=== PATIENT | female | born 1955 | race Hispanic/Latino ===

== ENCOUNTER 2018-07-03 06:31 | Day surgery (SDC) | payer BC ==
--- OUTSIDE RECORDS SUMMARY | 2018-07-03 06:33 | XMS REPORT | Clinical Summary ---
:1955 Author Organization [facility] Address [address] [place] [address] Care Team Providers Name Role Phone Irena Bocanegra MD Primary Care Provider Allergies No Known Allergies Current Medications Prescription Sig. Disp. Refills Start Date End Date Status lisinopril HEAVENLY REJI 1 10/21/2017 Active (PRINIVIL,ZESTRIL) TABLETA POR D?A 10 mg tablet ORAL REJI VEZ AL DAVID metFORMIN XR HEAVENLY REJI 10/21/2017 Active (GLUCOPHAGE-XR) 500 TABLETA DOS mg 24 hr tablet VECES AL DAVID rosuvastatin HEAVENLY REJI 10/21/2017 Active (CRESTOR) 10 MG TABLETA POR D?A tablet ORAL REJI VEZ AL DAVID aspirin (ECOTRIN) Take 81 mg by Active 81 MG enteric mouth daily. coated tablet CALCIUM Take 1 tablet Active CARBONATE/VITAMIN by mouth daily. D3 (CALTRATE 600 + D ORAL) multivitamin with Take 1 tablet Active minerals tablet by mouth daily. VITAMIN B COMPLEX Take 1 tablet Active (B COMPLEX-VITAMIN by mouth daily. B12 ORAL) SUPARTZ FX 10 mg/mL 2 (two) times a 10/18/2017 Active syringe week. Knee injection ciprofloxacin Take 500 mg by 11/20/2017 Discontinued (CIPRO) 500 MG mouth 2 (two) 8 tablet times a day. metroNIDAZOLE Take 500 mg by 11/22/2017 Discontinued (FLAGYL) 500 MG mouth 3 (three) 8 tablet times a day. SUPREP BOWEL PREP Take 2 Bottles 354 mL 0 11/29/2017 KIT 17.5-3.13-1.6 (354 mL total) 8 gram recon soln by mouth once for 1 dose. Take as directed by physician traMADol (ULTRAM) Take 1 tablet 50 tablet 0 12/07/2017 50 mg tablet (50 mg total) 8 by mouth every 6 (six) hours as needed (pain) for up to 10 days. Active Problems Problem Noted Date Bowel perforation (HCC) 12/07/2017 Diverticulitis 12/05/2017 Encounters Date Type Specialty Care Team Description 02/21/2018 Office Visit General Surgery [facility] Diverticulitis of MD [place] large intestine without perforation or abscess without bleeding (Primary Dx) 02/21/2018 Orders Only General Surgery [facility] MD 02/01/2018 Office Visit General Surgery [facility] Anal stenosis (Primary Dx); MD [place] Diverticulitis of large intestine without perforation or abscess without bleeding 01/24/2018 Office Visit General Surgery [facility] Anal stenosis (Primary Dx); MD [place] Diverticulitis of large intestine without perforation or abscess without bleeding 01/24/2018 Hospital Encounter Radiology [facility] Ileostomy status MD Ryley 01/02/2018 Orders Only General Surgery Yareli Van Ileostomy status MD [place] (Primary Dx) 12/29/2017 Office Visit General Surgery Alagugurusamy, Diverticulitis of [place] large intestine Todd, MAINTENANCE TECHNICIAN 2ND SHIFT-C without perforation [facility] or abscess without MD [place] bleeding (Primary Dx) 12/15/2017 Office Visit General Surgery Alagugurusamy, Diverticulitis of [place] large intestine with Todd, MAINTENANCE TECHNICIAN 2ND SHIFT-C abscess without bleeding (Primary Dx) 12/11/2017 Office Visit General Surgery Alagugurusamy, Diverticulitis of [place] large intestine with Todd, MAINTENANCE TECHNICIAN 2ND SHIFT-C abscess without bleeding (Primary Dx) 12/05/2017 - Hospital Encounter General Surgery [facility] Diverticulitis of 12/07/2017 MD [place]yle[place] large intestine with abscess without bleeding 12/05/2017 Procedure Pass General Surgery 12/05/2017 Surgery General Surgery [facility] LAPARSCOPIC LOW MD [place] ANTERIOR COLON RESECTION WITH DRAINAGE OF ABSCESS AND DIVERTING LOOP ILEOSTOMY 12/04/2017 Pre-Admit Testing Pre-Admission [facility] Preop testing Appointment Testing MD [place]y (Primary Dx) 12/04/2017 Anesthesia Event General Surgery [place] Luis APRN 11/29/2017 Orders Only General Surgery [facility] MD 11/29/2017 Documentation General Surgery Alagugurusamy, Aida Todd, MAINTENANCE TECHNICIAN 2ND SHIFT-C 11/28/2017 Hospital Encounter Radiology [facility] MD 11/28/2017 Ancillary Orders Radiology [facility] MD 11/24/2017 Lab Lab [facility] MD large intestine with abscess without bleeding 11/24/2017 Orders Only General Surgery [facility] MD 11/23/2017 Office Visit General Surgery [facility] DiverticuliTanesha MD large intestine with abscess without bleeding (Primary Dx) 11/23/2017 Orders Only General Surgery [facility] MD 11/23/2017 Orders Only General Surgery [facility] DiverticConstantine MD large intestine with abscess without bleeding (Primary Dx) 11/23/2017 Orders Only General Surgery [facility] MD large intestine with abscess without bleeding (Primary Dx) 11/23/2017 Orders Only General Surgery [facility] DiverticuliTanesha MD large intestine with abscess without bleeding (Primary Dx) after 07/02/2017 Family History Medical History Relation Name Comments Heart disease Father Hypertension Father Stroke Father Anesthesia problems Maternal Grandmother Relation Name Status Comments Father Maternal Grandmother Social History Tobacco Use Types Packs/Day Years Used Date Never Smoker Smokeless Tobacco: Never Used Alcohol Use Drinks/Week oz/Week Comments No Sex Assigned at Date Recorded Not on file Last Filed Vital Signs Vital Sign Reading Time Taken Blood Pressure 128/90 02/21/2018 2:59 PM CDT Pulse 87 02/21/2018 2:59 PM CDT Temperature 35.9 C (96.6 F) 12/07/2017 3:33 PM CDT Respiratory Rate 18 12/07/2017 3:33 PM CDT Oxygen Saturation 95% 12/07/2017 3:33 PM CDT Inhaled Oxygen Concentration - - Weight 66.8 kg (147 lb 4.8 oz) 12/05/2017 11:02 AM CDT Height 149.9 cm (4' 11") 12/05/2017 11:02 AM CDT Body Mass Index 29.75 12/05/2017 11:02 AM CDT Plan of Treatment Health Maintenance Due Date Last Done Comments CERVICAL CANCER SCREENING 1977 BREAST CANCER SCREENING 2006 COLON CANCER SCREENING 2006 SHINGRIX VACCINE (#1) 2006 ZOSTER VACCINE 2016 INFLUENZA VACCINE 04/04/2018 Procedures Procedure Name Priority Date/Time Associated Comments Diagnosis SURGICAL PATHOLOGY Routine 02/06/2018 12:00 REQUEST AM CDT FL COLON Routine 01/24/2018 11:52 Ileostomy status Results for this GASTROGRAFIN WATER AM CDT procedure are in SOLUBLE ENEMA the results section. POC GLUCOSE Routine 12/07/2017 4:13 Results for this PM CDT procedure are in the results section. POC GLUCOSE Routine 12/07/2017 11:52 Results for this AM CDT procedure are in the results section. POC GLUCOSE Routine 12/07/2017 7:47 Results for this AM CDT procedure are in the results section. ZZESTIMATED GFR Routine 12/07/2017 4:00 Results for this AM CDT procedure are in the results section. PHOSPHORUS LEVEL Routine 12/07/2017 4:00 Results for this AM CDT procedure are in the results section. MAGNESIUM LEVEL Routine 12/07/2017 4:00 Results for this AM CDT procedure are in the results section. BASIC METABOLIC PANEL Routine 12/07/2017 4:00 Results for this AM CDT procedure are in the results section. HC COMPLETE BLD COUNT Routine 12/07/2017 4:00 Results for this W/AUTO DIFF AM CDT procedure are in the results section. POC GLUCOSE Routine 12/06/2017 9:29 Results for this PM CDT procedure are in the results section. POC GLUCOSE Routine 12/06/2017 3:25 Results for this PM CDT procedure are in the results section. POC GLUCOSE Routine 12/06/2017 11:21 Results for this AM CDT procedure are in the results section. POC GLUCOSE Routine 12/06/2017 8:23 Results for this AM CDT procedure are in the results section. ZZESTIMATED GFR Routine 12/06/2017 4:00 Results for this AM CDT procedure are in the results section. PHOSPHORUS LEVEL Routine 12/06/2017 4:00 Results for this AM CDT procedure are in the results section. MAGNESIUM LEVEL Routine 12/06/2017 4:00 Results for this AM CDT procedure are in the results section. BASIC METABOLIC PANEL Routine 12/06/2017 4:00 Results for this AM CDT procedure are in the results section. HC COMPLETE BLD COUNT Routine 12/06/2017 3:20 Results for this W/AUTO DIFF AM CDT procedure are in the results section. POC GLUCOSE Routine 12/05/2017 8:42 Results for this PM CDT procedure are in the results section. AFB STAIN Routine 12/05/2017 7:00 Results for this PM CDT procedure are in the results section. GRAM STAIN Routine 12/05/2017 7:00 Results for this PM CDT procedure are in the results section. FUNGUS SMEAR Routine 12/05/2017 7:00 Results for this PM CDT procedure are in the results section. FUNGUS CULTURE Routine 12/05/2017 7:00 Results for this PM CDT procedure are in the results section. AFB CULTURE Routine 12/05/2017 7:00 Results for this PM CDT procedure are in the results section. AEROBIC CULTURE Routine 12/05/2017 7:00 Results for this PM CDT procedure are in the results section. ANAEROBIC CULTURE Routine 12/05/2017 7:00 Results for this PM CDT procedure are in the results section. GRAM STAIN Routine 12/05/2017 6:32 Results for this PM CDT procedure are in the results section. AFB STAIN Routine 12/05/2017 6:32 Results for this PM CDT procedure are in the results section. AFB CULTURE Routine 12/05/2017 6:32 Results for this PM CDT procedure are in the results section. FUNGUS CULTURE Routine 12/05/2017 6:32 Results for this PM CDT procedure are in the results section. FUNGUS SMEAR Routine 12/05/2017 6:32 Results for this PM CDT procedure are in the results section. AEROBIC CULTURE Routine 12/05/2017 6:32 Results for this PM CDT procedure are in the results section. ANAEROBIC CULTURE Routine 12/05/2017 6:32 Results for this PM CDT procedure are in the results section. AL AN ELECTIVE Routine 12/05/2017 5:47 ENDOTRACHEAL AIRWAY PM CDT Procedure Note - Denis Cabezas - 12/05/2017 5:47 PM CDT Airway Date/Time: 12/05/2017 5:16 PM Performed by: DENIS CABEZAS Authorized by: DEREK NEWELL Location: OR Urgency: Elective Difficult Airway: No Resident/FILM RENTAL CLERK/AA: DENIS CABEZAS Performed by: resident/FILM RENTAL CLERK/AA Preoxygenated with 100% O2: Yes Mask Ventilation: Easy mask (oral airway used ) Final Airway Type: Endotracheal airway Final Endotracheal Airway: ETT Cuffed: Yes Technique Used: Direct laryngoscopy Insertion Site: Oral Blade Type: Naqvi Laryngoscope Blade/Videolaryngoscope Blade Size: 2 ETT Size (mm): 7.0 Cuff at minimum occlusion pressure: Yes Measured from: Teeth ETT to Teeth (cm): 19 Placement Verified by: CO2 detection, direct visualization and equal breath sounds Laryngoscopic view: Grade I - full view of glottis Rapid Sequence Induction (RSI): No Modified RSI: No Number of Attempts at Approach: 1 Atraumatic intubation, dentition unchanged POC GLUCOSE Routine 12/05/2017 4:15 Results for this PM CDT procedure are in the results section. RESECTION, COLON, 12/05/2017 4:00 Diverticulitis of LOW ANTERIOR, PM CDT large intestine with LAPAROSCOPIC abscess without bleeding Special Needs XI CONSULT TO OSTOMY CARE Routine 12/05/2017 3:43 PM NURSE CDT POC GLUCOSE Routine 12/05/2017 1:34 PM Results for this CDT procedure are in the results section. POC GLUCOSE Routine 12/05/2017 11:07 AM Results for this CDT procedure are in the results section. SURGICAL PATHOLOGY Routine 12/05/2017 8:37 AM Results for this REQUEST CDT procedure are in the results section. ECG PRE/POST OP Routine 12/04/2017 10:35 AM Preop testing Results for this CDT procedure are in the results section. HEMOGLOBIN A1C Routine 12/04/2017 10:24 AM Preop testing Results for this CDT procedure are in the results section. TYPE AND SCREEN Routine 12/04/2017 10:24 AM Preop testing Results for this CDT procedure are in the results section. CBC WITH PLATELET AND Routine 11/24/2017 11:37 AM Results for this DIFFERENTIAL CDT procedure are in the results section. COMPREHENSIVE METABOLIC Routine 11/23/2017 4:01 PM Results for this PANEL CDT procedure are in the results section. CT ABD/PELVIC EXTERNAL Routine 11/22/2017 2:00 PM Results for this STUDY CDT procedure are in the results section. after 07/02/2017 Results Surgical pathology request (02/06/2018)Only the most recent of2 resultswithin the time period is included. Specimen Tissue Narrative Performed At [place] Colon Gastrografin Water Soluble Enema (01/24/2018 11:52 AM) Narrative Performed At EXAMINATION:[place] COLON GASTROGRAFIN WATER SOLUBLE ENEMA [facility] CLINICAL HISTORY:Z93.2 Ileostomy status, ileostomy status COMPARISON:None. TECHNIQUE: Water-soluble contrast administered via a rectal tube by gravity under fluoroscopic guidance. The colon was opacified in a retrograde fashion. Spot radiographs and overhead films were obtained. FLUOROSCOPIC TIME:1.1 minutes. 7 fluoroscopic spot images FINDINGS: Winder Hand image shows nonobstructive bowel gas pattern. Staple line projecting to the left of midline in the upper pelvis. Contrast readily traverses the staple line, without evidence of extravasation or narrowing or holdup. Scattered diverticula mostly in the descending colon. On the postevacuation view, there is decompression of contrast in the colon distally, with residual contrast mostly proximally. IMPRESSION: Satisfactory postoperative appearance. [facility]-[id number] Procedure Note Hm Interface, Radiology Results Incoming - 01/24/2018 1:27 PM CDT EXAMINATION: [place] COLON GASTROGRAFIN WATER SOLUBLE ENEMA CLINICAL HISTORY: Z93.2 Ileostomy status, ileostomy status COMPARISON: None. TECHNIQUE: Water-soluble contrast administered via a rectal tube by gravity under fluoroscopic guidance. The colon was opacified in a retrograde fashion. Spot radiographs and overhead films were obtained. FLUOROSCOPIC TIME: 1.1 minutes. 7 fluoroscopic spot images FINDINGS: Winder Hand image shows nonobstructive bowel gas pattern. Staple line projecting to the left of midline in the upper pelvis. Contrast readily traverses the staple line, without evidence of extravasation or narrowing or holdup. Scattered diverticula mostly in the descending colon. On the postevacuation view, there is decompression of contrast in the colon distally, with residual contrast mostly proximally. IMPRESSION: Satisfactory postoperative appearance. [facility]-[id number] Performing Organization Address City/State/Zipcode Phone Number [facility] [address] [place] [address] POC glucose (12/07/2017 4:13 PM)Only the most recent of11 resultswithin the time period is included. POC glucose 181 (H) 65 - 99 mg/dL [facility] DEPARTMENT OF PATHOLOGY AND Comment: GENOMIC MEDICINE [facility] Notified RN Meter ID: [id number] Computer Science Teacher: Jesus Charles Performing Organization Address City/State/Zipcode Phone Number [facility] DEPARTMENT OF PATHOLOGY AND [address] [place] [id number] [employer] [facility] Estimated GFR (12/07/2017 4:00 AM)Only the most recent of2 resultswithin the time period is included. GFR Non Af Amer >90 mL/min/1.73 m2 [facility] DEPARTMENT OF PATHOLOGY AND GENOMIC MEDICINE GFR Af Amer >90 mL/min/1.73 m2 [facility] DEPARTMENT OF Comment: PATHOLOGY AND GENOMIC Chronic kidney disease: <60 mL/min/1.73m2 MEDICINE Kidney failure: <15 mL/min/1.73m2 The estimated GFR is calculated from the IDMS-traceable Modification of Diet in Renal Disease Equation. The accuracy of the calculation is poor when the creatinine is normal. Calculated values >90 mL/min/1.73m2 are not reported. This equation has not been validated in children (<18 years), women, the elderly (>70 years), or ethnic groups other than Caucasians and Americans. Specimen Plasma specimen Performing Organization Address City/[facility]/Zipcode Phone Number [facility] DEPARTMENT OF PATHOLOGY AND [address] [place], [place] [id number] [employer] [facility] CBC with platelet and differential (12/07/2017 4:00 AM)Only the most recent of3 resultswithin the time period is included. WBC 8.35 4.50 - 11.00 k/uL [facility] DEPARTMENT OF PATHOLOGY AND GENOMIC MEDICINE RBC 3.72 (L) 4.20 - 5.50 m/uL [facility] DEPARTMENT OF PATHOLOGY AND GENOMIC MEDICINE HGB 10.3 (L) 12.0 - 16.0 g/dL [facility] DEPARTMENT OF PATHOLOGY AND GENOMIC MEDICINE HCT 33.6 (L) 37.0 - 47.0 % [facility] DEPARTMENT OF PATHOLOGY AND GENOMIC MEDICINE MCV 90.3 82.0 - 100.0 fL [facility] DEPARTMENT OF PATHOLOGY AND GENOMIC MEDICINE MCH 27.7 27.0 - 34.0 pg [facility] DEPARTMENT OF PATHOLOGY AND GENOMIC MEDICINE MCHC 30.7 (L) 31.0 - 37.0 g/dL [facility] DEPARTMENT OF PATHOLOGY AND GENOMIC MEDICINE RDW - SD 48.0 37.0 - 55.0 fL [facility] DEPARTMENT OF PATHOLOGY AND GENOMIC MEDICINE MPV 10.0 8.8 - 13.2 fL [facility] DEPARTMENT OF PATHOLOGY AND GENOMIC MEDICINE Platelet count 204 150 - 400 k/uL [facility] DEPARTMENT OF PATHOLOGY AND GENOMIC MEDICINE Nucleated RBC 0.00 /100 WBC [facility] DEPARTMENT OF PATHOLOGY AND GENOMIC MEDICINE Neutrophils 72.4 (H) 39.0 - 69.0 % [facility] DEPARTMENT OF PATHOLOGY AND GENOMIC MEDICINE Lymphocytes 16.2 (L) 25.0 - 45.0 % [facility] DEPARTMENT OF PATHOLOGY AND GENOMIC MEDICINE Monocytes 9.6 0.0 - 10.0 % [facility] DEPARTMENT OF PATHOLOGY AND GENOMIC MEDICINE Eosinophils 1.0 0.0 - 5.0 % [facility] DEPARTMENT OF PATHOLOGY AND GENOMIC MEDICINE Basophils 0.4 0.0 - 1.0 % [facility] DEPARTMENT OF PATHOLOGY AND GENOMIC MEDICINE Immature granulocytes 0.4Comment: 0.0 - 1.0 % [facility] DEPARTMENT OF "Immature PATHOLOGY AND GENOMIC granulocytes" MEDICINE (promyelocytes, myelocytes, metamyelocytes) Specimen Blood Performing Organization Address City/[facility] Phone Number [facility] DEPARTMENT OF PATHOLOGY AND [address] [place] [address] Phosphorus level (12/07/2017 4:00 AM)Only the most recent of2 resultswithin the time period is included. Phosphorus 2.7 2.4 - 4.5 mg/dL [facility] DEPARTMENT OF PATHOLOGY AND GENOMIC MEDICINE Specimen Plasma specimen Performing Organization Address City/[facility] Phone Number [facility] DEPARTMENT OF PATHOLOGY AND [address] [place] [address] Magnesium level (12/07/2017 4:00 AM)Only the most recent of2 resultswithin the time period is included. Magnesium 1.9 1.6 - 2.4 mg/dL [facility] DEPARTMENT OF PATHOLOGY AND GENOMIC MEDICINE Specimen Plasma specimen Performing Organization Address City/[facility] Cent[facility] Phone Number [facility] DEPARTMENT OF PATHOLOGY AND [address] [place] [address] [employer] MEDICINE Basic metabolic panel (12/07/2017 4:00 AM)Only the most recent of2 resultswithin the time period is included. Sodium 144 135 - 148 mEq/L [facility] DEPARTMENT OF PATHOLOGY AND GENOMIC MEDICINE Potassium 4.3 3.5 - 5.0 mEq/L [facility] DEPARTMENT OF PATHOLOGY AND GENOMIC MEDICINE Chloride 109 98 - 112 mEq/L [facility] DEPARTMENT OF PATHOLOGY AND GENOMIC MEDICINE CO2 25 24 - 31 mEq/L [facility] DEPARTMENT OF PATHOLOGY AND GENOMIC MEDICINE Anion gap 10 7 - 15 mEq/L [facility] DEPARTMENT OF PATHOLOGY Comment: [facility] Starting from December , anion gap calculation no longer incorporates potassium. Please note the change. BUN 6 (L) 8 - 23 mg/dL [facility] DEPARTMENT OF PATHOLOGY AND GENOMIC MEDICINE Creatinine 0.6 0.5 - 0.9 mg/dL [facility] DEPARTMENT OF PATHOLOGY AND GENOMIC MEDICINE Glucose 118 (H) 65 - 99 mg/dL [facility] DEPARTMENT OF PATHOLOGY AND GENOMIC MEDICINE Calcium 8.8 8.8 - 10.2 mg/dL [facility] DEPARTMENT OF PATHOLOGY AND [employer] MEDICINE Specimen Plasma specimen Performing Organization Address City/[facility] Phone Number [facility] DEPARTMENT OF PATHOLOGY AND [address] [place] [address] Fungus smear (12/05/2017 7:00 PM)Only the most recent of2 resultswithin the time period is included. Fungus smear No fungi observed. [facility] DEPARTMENT OF PATHOLOGY Comment: [facility] Specimen Information Specimen Source: Peritoneal fluid Specimen Site: Not otherwise specified Specimen Peritoneal fluid - Not otherwise specified Performing Organization Address City/[facility] Phone Number [facility] DEPARTMENT OF PATHOLOGY AND [address] [place] [address] AFB culture (12/05/2017 7:00 PM)Only the most recent of2 resultswithin the time period is included. AFB culture isolate No growth after 6 weeks of incubation. [facility] DEPARTMENT OF PATHOLOGY Comment: AND [facility] Specimen Information Specimen Source: Peritoneal fluid Specimen Site: Not otherwise specified Specimen Peritoneal fluid - Not otherwise specified Performing Organization Address City/[facility] Phone Number [facility] DEPARTMENT OF PATHOLOGY AND [address] [place] [address] Aerobic culture (12/05/2017 7:00 PM)Only the most recent of2 resultswithin the time period is included. Aerobic culture isolate Escherichia coli [facility] DEPARTMENT OF Few PATHOLOGY AND GENOMIC , strain 1 MEDICINE This organism is NOT a carbapenemase producing organism. (A) Comment: Specimen Information Specimen Source: Peritoneal fluid Specimen Site: Not otherwise specified Aerobic culture isolate Escherichia coli [facility] DEPARTMENT OF Few PATHOLOGY [facility] , strain 2 MEDICINE This organism is NOT a carbapenemase producing organism. (A) Aerobic culture isolate Khushbu albicans [facility] DEPARTMENT OF Rare PATHOLOGY AND GENOMIC (A) MEDICINE Specimen Peritoneal fluid - Not otherwise specified Organism Antibiotic Method Susceptibility Escherichia coli Amikacin BRIAN <=4 mcg/mL: Susceptible Escherichia coli Amoxicillin/Clavulanate BRIAN 16/8 mcg/mL: Resistant Escherichia coli Ampicillin/Sulbactam BIRAN 16/8 mcg/mL: Resistant Escherichia coli Ampicillin BRIAN 16 mcg/mL: Resistant Escherichia coli Aztreonam BRIAN <=1 mcg/mL: Susceptible Escherichia coli Cefazolin BRIAN 4 mcg/mL: Resistant Escherichia coli Cefoxitin BRIAN 16 mcg/mL: Resistant Escherichia coli Ceftazidime BRIAN 1 mcg/mL: Susceptible Escherichia coli Ceftriaxone BRIAN <=0.5 mcg/mL: Susceptible Escherichia coli Cefuroxime Sodium BRIAN >16 mcg/mL: Resistant Escherichia coli Ciprofloxacin BRIAN >2 mcg/mL: Resistant Escherichia coli Ertapenem BRIAN <=0.125 mcg/mL: Susceptible Escherichia coli Gentamicin BRIAN 2 mcg/mL: Susceptible Escherichia coli Imipenem BRIAN <=0.25 mcg/mL: Susceptible Escherichia coli Levofloxacin BRIAN >4 mcg/mL: Resistant Escherichia coli Meropenem BRIAN <=0.125 mcg/mL: Susceptible Escherichia coli Piperacillin/Tazobactam BRIAN 16/4 mcg/mL: Susceptible Escherichia coli Tetracycline BRIAN 2 mcg/mL: Susceptible Escherichia coli Tigecycline BRIAN 1 mcg/mL: Susceptible Escherichia coli Tobramycin BRIAN 2 mcg/mL: Susceptible Escherichia coli Trimethoprim/Sulfamethoxazole BRIAN <=0.5/9.5 mcg/mL: Susceptible Escherichia coli Cefepime BRIAN <=0.5 mcg/mL: Susceptible Escherichia coli Amikacin BRIAN <=4 mcg/mL: Susceptible Escherichia coli Amoxicillin/Clavulanate BRIAN 8/4 mcg/mL: Susceptible Escherichia coli Ampicillin/Sulbactam BRIAN 16/8 mcg/mL: Resistant Escherichia coli Ampicillin BRIAN 8 mcg/mL: Susceptible Escherichia coli Aztreonam BRIAN <=1 mcg/mL: Susceptible Escherichia coli Cefazolin BRIAN 8 mcg/mL: Resistant Escherichia coli Cefoxitin BRIAN >16 mcg/mL: Resistant Escherichia coli Ceftazidime BRIAN <=0.5 mcg/mL: Susceptible Escherichia coli Ceftriaxone BRIAN <=0.5 mcg/mL: Susceptible Escherichia coli Cefuroxime Sodium BRIAN >16 mcg/mL: Resistant Escherichia coli Ciprofloxacin BRIAN >2 mcg/mL: Resistant Escherichia coli Ertapenem BRIAN <=0.125 mcg/mL: Susceptible Escherichia coli Gentamicin BRIAN 2 mcg/mL: Susceptible Escherichia coli Imipenem BRIAN <=0.25 mcg/mL: Susceptible Escherichia coli Levofloxacin BRIAN >4 mcg/mL: Resistant Escherichia coli Meropenem BRIAN <=0.125 mcg/mL: Susceptible Escherichia coli Piperacillin/Tazobactam BRIAN 8/4 mcg/mL: Susceptible Escherichia coli Tetracycline BRIAN 2 mcg/mL: Susceptible Escherichia coli Tigecycline BRIAN <=0.5 mcg/mL: Susceptible Escherichia coli Tobramycin BRIAN 1 mcg/mL: Susceptible Escherichia coli Trimethoprim/Sulfamethoxazole BRIAN <=0.5/9.5 mcg/mL: Susceptible Escherichia coli Cefepime BRIAN <=0.5 mcg/mL: Susceptible Performing Organization Address [facility] Phone Number [facility] DEPARTMENT OF PATHOLOGY AND [address] [place] [address] Gram stain (12/05/2017 7:00 PM)Only the most recent of2 resultswithin the time period is included. Gram stain isolate Many WBC's [facility] DEPARTMENT OF PATHOLOGY No organisms seen AND GENOMIC MEDICINE Comment: Specimen Information Specimen Source: Peritoneal fluid Specimen Site: Not otherwise specified Specimen Peritoneal fluid - Not otherwise specified Performing Organization Address [facility] Phone Number [facility] DEPARTMENT OF PATHOLOGY AND [address] [place] [address] [employer] [employer] [facility] AFB stain (12/05/2017 7:00 PM)Only the most recent of2 resultswithin the time period is included. AFB stain No acid fast bacilli (AFB) seen. [facility] DEPARTMENT OF PATHOLOGY AND Comment: GENOMIC MEDICINE Specimen Information Specimen Source: Peritoneal fluid Specimen Site: Not otherwise specified Specimen Peritoneal fluid - Not otherwise specified Performing Organization Address [facility] Phone Number [facility] DEPARTMENT OF PATHOLOGY AND [address] [place] [address] Fungus culture (12/05/2017 7:00 PM)Only the most recent of2 resultswithin the time period is included. Fungus culture isolate Khushbu albicans [facility] DEPARTMENT OF Few PATHOLOGY AND GENOMIC (A) MEDICINE Comment: Specimen Information Specimen Source: Peritoneal fluid Specimen Site: Not otherwise specified Specimen Peritoneal fluid - Not otherwise specified Organism Antibiotic Method Susceptibility Khushbu albicans Micafungin BP 0.032 mcg/mL: Susceptible Khushbu albicans Amphotericin B BP 1 mcg/mL Khushbu albicans Posiconazole BP 0.03 mcg/mL Khushbu albicans Voriconazole BP 0.016 mcg/mL: Susceptible Khushbu albicans Itraconazole BP 0.06 mcg/mL Khushbu albicans Fluconazole BP 0.25 S mcg/mL Performing Organization Address City/[facility]/Zipcode Phone Number [facility] DEPARTMENT OF PATHOLOGY AND [address] [place] [address] [facility] Anaerobic culture (12/05/2017 7:00 PM)Only the most recent of2 resultswithin the time period is included. Anaerobic culture No anaerobic organisms isolated. [facility] DEPARTMENT OF isolate Comment: PATHOLOGY AND GENOMIC Specimen Information MEDICINE Specimen Source: Peritoneal fluid Specimen Site: Not otherwise specified Specimen Peritoneal fluid - Not otherwise specified Performing Organization Address [facility] Phone Number [facility] DEPARTMENT OF PATHOLOGY AND [address] [place] [address] [facility] ECG Pre/Post Op (12/04/2017 10:35 AM) Ventricular rate 84 [facility] MUSE Atrial rate 84 [facility] MUSE AL interval 162 HM MUSE QRSD interval 96 H MUSE QT interval 404 [facility] M[facility] QTC interval 477 [facility] MUSE P axis 1 43 [facility] MUSE QRS axis 1 114 [facility] MUSE T wave axis 16 [facility] M[facility] EKG impression Normal sinus rhythm-Right axis [facility] MUSE deviation-Incomplete right bundle branch block-Abnormal ECG-No previous ECGs available- Performing Organization Address [facility] Phone Number [facility] MUSE [address] [place] [phone] Type and screen (12/04/2017 10:24 AM) ABO grouping O [facility] DEPARTMENT OF PATHOLOGY AND GENOMIC MEDICINE Rh type POS [facility] DEPARTMENT OF PATHOLOGY AND GENOMIC MEDICINE Antibody screen (gel) NEG [facility] DEPARTMENT OF PATHOLOGY AND GENOMIC MEDICINE Specimen Blood Performing Organization Address City/[facility]/Zipcode Phone Number [facility] DEPARTMENT OF PATHOLOGY AND [address] [place] [address] [employer] [facility] Hemoglobin A1c (12/04/2017 10:24 AM) Hemoglobin A1C 6.3 (H) 4.0 - 5.6 % [facility] DEPARTMENT OF PATHOLOGY Comment: AND [employer] MEDICINE HbA1c cutoffs for diagnosing diabetes: 4.0% - 5.6%=normal 5.7% - 6.4%=increased risk for diabetes (prediabetes) >=6.5%=diabetes Goals for glycemic control (ADA 2016) < 7.0%Target for non adults with diabetes. More or less stringent targets may be appropriate for individual patients. <7.5% Target for Children and adolescents with type 1 diabetes. Specimen Blood Performing Organization Address City/State/Zipcode Phone Number [facility] DEPARTMENT OF PATHOLOGY AND [address] [place] [address] [facility] Comprehensive metabolic panel (11/23/2017 4:01 PM) Glucose 115 (H) 65 - 99 mg/dL [facility] Comment: [facility] Fasting reference interval For someone without known diabetes, a glucose value between 100 and 125 mg/dL is consistent with prediabetes and should be confirmed with a follow-up test. BUN, whole blood 15 7 - 25 mg/dL [facility] Creatinine 0.59 0.50 - 0.99 [facility] Comment: mg/dL [facility] For patients >49 years of age, the reference limit for Creatinine is approximately 13% higher for people identified as -Zimbabwean. EGFR Non-Afr. Zimbabwean 100 > OR=60 [facility] mL/min/1.73m2 [facility] EGFR 115 > OR=60 [facility] mL/min/1.73m2 [facility] BUN/creatinine ratio NOT APPLICABLE 6 - 22 (calc) [facility] Sodium 142 135 - 146 mmol/L [facility] Potassium 3.6 3.5 - 5.3 mmol/L [facility] Chloride 104 98 - 110 mmol/L [facility] CO2 20 20 - 31 mmol/L [facility] Calcium 9.3 8.6 - 10.4 mg/dL [facility] Protein 7.2 6.1 - 8.1 g/dL [facility] Albumin, S 3.8 3.6 - 5.1 g/dL [facility] Globulin, total 3.4 1.9 - 3.7 g/dL [facility] (calc) [facility] Albumin/globulin ratio 1.1 1.0 - 2.5 (calc) [facility] Total bilirubin 0.4 0.2 - 1.2 mg/dL [facility] Alkaline phosphatase 314 (H) 33 - 130 U/L [facility] AST 19 10 - 35 U/L [facility] ALT 37 (H) 6 - 29 U/L [facility] Narrative Performed At FASTING: UNKNOWN QUEST Other Results Text Performing Organization Information: Site ID: [id number] Name: [email or web address] Address: [address] [place] [address] Director: Shaniqua Retana MD Performing Organization Address City/State/Zipcode Phone Number [facility] [address] [place] [address] CT Abd/Pelvic External Study (11/22/2017 2:00 PM) Narrative Performed At This exam was not acquired at a [employer] facility and has not been [facility] interpreted by a [employer] Provider.The exam was imported into our imaging system for comparisons purposes. Performing Organization Address City/[facility]/Zipcode Phone Number [facility] [address] [place] [address] after 07/02/2017 Insurance Payer Benefit Plan / Group Subscriber ID Type Phone Address BCBS BCBS CHOICE PPO/FEDERAL EMPL PPO xxxxxxxxxxxx PPO [phone] [address]
--- OUTSIDE RECORDS SUMMARY | 2018-07-03 06:34 | XMS REPORT | Clinical Summary ---
:1955 Author Organization [facility] Address [address] [place] [address] Care Team Providers Name Role Phone Daljit Irena Valente Primary Care Provider Unavailable Allergies No Known Allergies Medications Medication Sig Dispensed Refills Start Date End Date Status metFORMIN (GLUCOPHAGE) Take 1,000 mg 0 Active 1000 MG tablet by mouth daily with dinner. lisinopril Take 10 mg by 0 Active (PRINIVIL,ZESTRIL) 10 mouth every MG tablet evening. rosuvastatin (CRESTOR) Take 10 mg by 0 Active 10 MG tablet mouth nightly. CALCIUM Take 1 tablet 0 Active CARBONATE/VITAMIN D3 by mouth 2 (CALTRATE 600 + D (two) times ORAL) daily. GLUCOSAMINE/CHONDR STEVENS Take 1 tablet 0 Active A SOD (OSTEO BI-FLEX by mouth 2 ORAL) (two) times daily. aspirin 81 MG EC Take 81 mg by 0 Active tablet mouth daily. b complex vitamins Take 1 tablet 0 Active tablet by mouth daily. L.ACIDOPHILUS/B.BIFIDU Take 1 tablet 0 Active M,LONGUM (HEALTHY by mouth daily. COLON ORAL) MULTIVIT-MIN/IRON/FOLI Take 1 tablet 0 Active C/LUTEIN (CENTRUM by mouth daily. SILVER WOMEN ORAL) traMADol (ULTRAM) 50 Take 1 tablet 50 tablet 0 02/07/2018 02/17/2018 mg tablet (50 mg total) by mouth every 6 (six) hours as needed for up to 10 days. Max Daily Amount: 200 mg Active Problems Problem Noted Date Diverticulitis of large intestine 02/05/2018 Diverticulitis large intestine 02/05/2018 Encounters Date Type Specialty Care Team Description 02/05/2018 Surgery Van Downs LAPAROSCOPY,COLOSTOMY MD Ryley [place] 02/05/2018 - Hospital Encounter General Internal Van Downs Diverticulitis of 02/07/2018 Medicine MD Ryley large intestine with abscess without bleeding (Primary Dx) 02/02/2018 Anesthesia Event Catalina Guillermo MD 01/25/2018 Hospital Encounter Pre-Admission Van Downs MD 01/25/2018 Orders Only General Internal Medicine after 07/02/2017 Social History Tobacco Use Types Packs/Day Years Used Date Never Smoker Smokeless Tobacco: Never Used Alcohol Use Drinks/Week oz/Week Comments No Sex Assigned at Date Recorded Not on file Job Start Date Occupation Industry Not on file Not on file Not on file Travel History Travel Start Travel End No recent travel history available. Last Filed Vital Signs Vital Sign Reading Time Taken Blood Pressure 116/65 02/07/2018 7:51 AM CDT Pulse 90 02/07/2018 7:51 AM CDT Temperature 37 C (98.6 F) 02/07/2018 7:51 AM CDT Respiratory Rate 18 02/07/2018 7:51 AM CDT Oxygen Saturation 92% 02/07/2018 7:51 AM CDT Inhaled Oxygen Concentration - - Weight 66.5 kg (146 lb 9.6 oz) 02/05/2018 12:07 PM CDT Height 149.9 cm (4' 11") 02/05/2018 12:07 PM CDT Body Mass Index 29.61 02/05/2018 12:07 PM CDT Plan of Treatment Not on file Procedures Procedure Name Priority Date/Time Associated Diagnosis Comments POCT-GLUCOSE METER Routine 02/07/2018 7:45 Results for this AM CDT procedure are in the results section. CBC (HEMOGRAM ONLY) Routine 02/07/2018 4:00 Results for this AM CDT procedure are in the results section. MAGNESIUM Routine 02/07/2018 4:00 Results for this AM CDT procedure are in the results section. PHOSPHORUS Routine 02/07/2018 4:00 Results for this AM CDT procedure are in the results section. BASIC METABOLIC PANEL Routine 02/07/2018 4:00 Results for this (7) AM CDT procedure are in the results section. POCT-GLUCOSE METER Routine 02/06/2018 9:17 Results for this PM CDT procedure are in the results section. POCT-GLUCOSE METER Routine 02/06/2018 5:01 Results for this PM CDT procedure are in the results section. POCT-GLUCOSE METER Routine 02/06/2018 12:54 Results for this PM CDT procedure are in the results section. POCT-GLUCOSE METER Routine 02/06/2018 8:57 Results for this AM CDT procedure are in the results section. CBC W/PLT COUNT & Routine 02/06/2018 3:16 Results for this AUTO DIFFERENTIAL AM CDT procedure are in the results section. COMPREHENSIVE Routine 02/06/2018 3:16 Results for this METABOLIC PANEL AM CDT procedure are in the results section. CBC W/PLT COUNT & Routine 02/06/2018 3:16 Results for this AUTO DIFFERENTIAL AM CDT procedure are in the results section. HEMOGLOBIN A1C Routine 02/06/2018 3:16 Results for this AM CDT procedure are in the results section. MAGNESIUM Routine 02/06/2018 3:16 Results for this AM CDT procedure are in the results section. PHOSPHORUS Routine 02/06/2018 3:16 Results for this AM CDT procedure are in the results section. POCT-GLUCOSE METER Routine 02/05/2018 9:59 Results for this PM CDT procedure are in the results section. POCT-GLUCOSE METER Routine 02/05/2018 7:52 Results for this PM CDT procedure are in the results section. TISSUE EXAM AP Routine 02/05/2018 6:35 Results for this PM CDT procedure are in the results section. LAPAROSCOPY,COLOSTOMY 02/05/2018 3:27 Diverticulitis of [place] PM CDT large intestine without perforation or abscess without bleeding POCT-GLUCOSE METER Routine 02/05/2018 1:03 Results for this PM CDT procedure are in the results section. ECG 12-LEAD Routine 01/25/2018 11:55 AM CDT Procedure Note - Interface, External Ris In 01/25/2018 4:52 PM CDT Ventricular Rate 83 BPM Atrial Rate 83 BPM P-R Interval 172 ms QRS Duration 90 ms Q-T Interval 418 ms QTC Calculation(Bazett) 491 ms P Empire 4 degrees R Empire 105 degrees T Empire -19 degrees Sinus rhythm with occasional Premature ventricular complexes Rightward axis RSR' or QR pattern in V1 suggests right ventricular conduction delay Inferior infarct , age undetermined Abnormal ECG No previous ECGs available ECG 12-LEAD Routine 01/25/2018 11:55 AM CDT Procedure Note - Interface, External Ris In - 01/25/2018 12:33 PM CDT Ventricular Rate 83 BPM Atrial Rate 83 BPM P-R Interval 172 ms QRS Duration 90 ms Q-T Interval 418 ms QTC Calculation(Bazett) 491 ms P Empire 4 degrees R Empire 105 degrees T Empire -19 degrees Sinus rhythm with occasional Premature ventricular complexes Rightward axis RSR' or QR pattern in V1 suggests right ventricular conduction delay Inferior infarct , age undetermined Abnormal ECG No previous ECGs available ECG 12-LEAD Routine 01/25/2018 11:55 AM CDT BASIC METABOLIC PANEL (7) Routine 01/25/2018 11:53 AM CDT HEMOGLOBIN Routine 01/25/2018 11:53 AM CDT after 07/02/2017 Results POC-Glucose meter (02/07/2018 7:45 AM CDT)Only the most recent of8 resultswithin the time period is included. POC-Glucose Meter 124 (H)Comment: TESTED AT 70 - 110 mg/dL [address] [address] Specimen Blood Performing Organization Address City/State/Zipcode Phone Number [address] [id number] [phone] CENTER CBC (Hemogram only) (02/07/2018 4:00 AM CDT) WBC 10.2 3.5 - 10.5 K/L [facility] RBC 4.22 3.93 - 5.22 M/L [facility] Hemoglobin 11.8 11.2 - 15.7 GM/DL [facility] Hematocrit 37.6 34.1 - 44.9 % [facility] MCV 89.1 79.4 - 94.8 fL [facility] MCH 28.0 25.6 - 32.2 pg [facility] MCHC 31.4 (L) 32.2 - 35.5 GM/DL [facility] RDW 15.2 (H) 11.7 - 14.4 % [facility] Platelets 178 150 - 450 K/CU MM [facility] MPV 9.7 9.4 - 12.3 fL [facility] nRBC 0 0 - 0 /100 WBC [facility] Specimen Blood Performing Organization Address City/State/Zipcode Phone Number [address] [address] [phone] [place] Phosphorus (02/07/2018 4:00 AM CDT)Only the most recent of2 resultswithin the time period is included. Phosphorus 2.8 2.3 - 4.7 mg/dL [facility] Specimen Blood Performing Organization Address City/[facility]/Zipcode Phone Number [address] [address] [phone] CENTER Magnesium (02/07/2018 4:00 AM CDT)Only the most recent of2 resultswithin the time period is included. Magnesium 2.1 1.6 - 2.6 mg/dL [facility] Specimen Blood Performing Organization Address City/[facility] Phone Number [address] [address] [place] Basic Metabolic Panel (02/07/2018 4:00 AM CDT)Only the most recent of2 resultswithin the time period is included. Sodium 140 136 - 145 meq/L [facility] Potassium 4.0 3.5 - 5.1 meq/L [facility] Chloride 109 (H) 98 - 107 meq/L [facility] CO2 23 22 - 29 meq/L [facility] BUN 16 7 - 21 mg/dL [facility] Creatinine 0.70 0.57 - 1.25 mg/dL [facility] Glucose 137 (H) 70 - 105 mg/dL [facility] Calcium 9.0 8.4 - 10.2 mg/dL [facility] EGFR 85Comment: ESTIMATED GFR IS mL/min/1.73 sq m [facility] NOT ACCURATE [facility] CLEARANCE IN PREDICTING GLOMERULAR FILTRATION RATE. ESTIMATED GFR IS NOT APPLICABLE FOR DIALYSIS PATIENTS. Specimen Blood Performing Organization Address City/State/Zipcode Phone Number [facility] [address] [place] [address] CENTER CBC with platelet count + automated diff (02/06/2018 3:16 AM CDT) WBC 13.7 (H) 3.5 - 10.5 K/L [facility] RBC 4.35 3.93 - 5.22 M/L [facility] Hemoglobin 12.4 11.2 - 15.7 GM/DL [facility] Hematocrit 39.0 34.1 - 44.9 % [facility] MCV 89.7 79.4 - 94.8 fL [facility] MCH 28.5 25.6 - 32.2 pg [facility] MCHC 31.8 (L) 32.2 - 35.5 GM/DL [facility] RDW 14.3 11.7 - 14.4 % [facility] Platelets 177 150 - 450 K/CU MM [facility] MPV 9.9 9.4 - 12.3 fL [facility] nRBC 0 0 - 0 /100 WBC [facility] % Neutros 92 % [facility] % Lymphs 5 % [facility] % Monos 2 % [facility] % Eos 0 % [facility] % Baso 0 % [facility] # Neutros 12.58 (H) 1.56 - 6.13 K/L [facility] # Lymphs 0.72 (L) 1.18 - 3.74 K/L [facility] # Monos 0.32 0.24 - 0.36 K/L [facility] # Eos 0.00 (L) 0.04 - 0.36 K/L [facility] # Baso 0.02 0.01 - 0.08 K/L [facility] Immature 1 0 - 1 % [facility] Specimen Blood Performing Organization Address City/State/Zipcode Phone Number [address] [address] [phone] [place] Hemoglobin A1c (02/06/2018 3:16 AM CDT) Hemoglobin A1C 5.6 4.3 - 6.1 % [facility] Specimen Blood Performing Organization Address City/State/Zipcode Phone Number [address] [address] [phone] [place] Comprehensive metabolic panel (02/06/2018 3:16 AM CDT) Protein, Total 6.7 6.0 - 8.3 gm/dL [facility] Albumin 4.0 3.5 - 5.0 g/dL [facility] Alkaline Phosphatase 91 40 - 150 U/L [facility] Total Bilirubin 0.5 0.2 - 1.2 mg/dL [facility] Sodium 136 136 - 145 meq/L [facility] Potassium 4.4 3.5 - 5.1 meq/L [facility] Chloride 106 98 - 107 meq/L [facility] CO2 19 (L) 22 - 29 meq/L [facility] BUN 18 7 - 21 mg/dL [facility] Creatinine 0.71 0.57 - 1.25 mg/dL [facility] Glucose 142 (H) 70 - 105 mg/dL [facility] Calcium 9.0 8.4 - 10.2 mg/dL [facility] AST 18 5 - 34 U/L [facility] ALT 23 6 - 55 U/L [facility] EGFR 84Comment: ESTIMATED GFR mL/min/1.73 sq m [facility] IS NOT ACCURATE [facility] CREATININE CLEARANCE IN PREDICTING GLOMERULAR FILTRATION RATE. ESTIMATED GFR IS NOT APPLICABLE FOR DIALYSIS PATIENTS. Specimen Blood Performing Organization Address City/State/Zipcode Phone Number [facility] [address] [place] [address] CENTER Tissue Exam (02/05/2018 6:35 PM CDT) Case Report Surgical Pathology Report Case: [id number] [facility] Authorizing Provider:Van Downs MDCollected: 02/05/2018 1835 [facility] Ordering Location: [facility] PERIOPERATIVE Received: 02/06/2018 0807 SERVICES Pathologist: Miriam Bradley Specimen:Ileostomy DIAGNOSIS Ileostomy: [facility] - Ileostomy site with reactive changes [facility] Signing Pathologist Direct Phone Line: [phone] CLINICAL HISTORY Diverticulitis of large [facility] intestine without [facility] perforation or abscess without bleeding SPECIMEN SOURCE Ileostomy [facility] GROSS DESCRIPTION The specimen is received in [facility] a formalin-filled container [facility] labeled with the patient's information and labeled "ileostomy" and consists of a bifurcated small bowel measuring 12.5 cm in length x 3.5 cm in circumference with a cooney-pink skin component measuring 4.5 x 3 x 0.3 cm. No perforations or suspicious areas are seen. Envelope Sealer sections are submitted as follows: A1, stapled resection margin en face; A2, A3, bottling equipment sales representative of small bowel and skin component. CG/ew MICROSCOPIC DESCRIPTION Sections from ileostomy shows denuded areas of small intestinal mucosa with vascular congestion, hemorrhage, mild increased chronic and focal acute information with reactive changes. Sections also inclu [facility] de portions of skin with mild reactive changes. No malignancy is seen. [facility] Specimen Tissue - Ileostomy Performing Organization Address [facility]/Zipcode Phone Number [facility] [address] [place] [address] [place] ECG 12 lead (01/25/2018 11:55 AM CDT) Narrative Performed At Ventricular Rate 83 BPM GE MUSE Atrial Rate 83 BPM P-R Interval 172 ms QRS Duration 90 ms Q-T Interval 418 ms QTC Calculation(Bazett) 491 ms P Empire 4 degrees R Empire 105 degrees T Empire -19 degrees Sinus rhythm Rightward axis RSR' or QR pattern in V1 suggests right ventricular conduction delay Inferior infarct , age undetermined Prolonged QT Abnormal ECG No previous ECGs available Confirmed by Ede SALINAS BASANT ([id number]) on 01/25/2018 1:04:43 PM Procedure Note Interface, External Ris In - 01/25/2018 1:04 PM CDT Ventricular Rate 83 BPM Atrial Rate 83 BPM P-R Interval 172 ms QRS Duration 90 ms Q-T Interval 418 ms QTC Calculation(Bazett) 491 ms P Empire 4 degrees R Empire 105 degrees T Empire -19 degrees Sinus rhythm Rightward axis RSR' or QR pattern in V1 suggests right ventricular conduction delay Inferior infarct , age undetermined Prolonged QT Abnormal ECG No previous ECGs available Confirmed by Ede SALINAS, MARK ANTHONY ([id number]) on 01/25/2018 1:04:43 PM Performing Organization Address [facility]/Zipcode Phone Number MUSE Hemoglobin (01/25/2018 11:53 AM CDT) Hemoglobin 14.0 11.2 - 15.7 GM/DL [facility] Specimen Blood Performing Organization Address City/[facility]/Zipcode Phone Number [facility] [address] [place] [address] [phone] [place] after 07/02/2017 Insurance Payer Benefit Plan / Subscriber ID Type Phone Address Group BLUE CROSS/BLUE BCBS PPO POS EPO xxxxxxxxxxxx PPO [phone] [address] [place] [address] Advance Directives For more information, please contact:[address] [phone] Code Status Date Activated Date Inactivated Comments Full Code 02/05/2018 9:29 PM 02/07/2018 1:28 PM This code status was determined by: Patient
--- OUTSIDE RECORDS SUMMARY | 2018-07-03 06:34 | XMS REPORT ---
:1955 [facility] Address [address] [place] [address] Dr. Dang [address] [place] [id number] Care Team Providers Name Role Phone WARNER DOWNS Unavailable Unavailable Problems This patient has no known problems. Allergies, Adverse Reactions, Alerts This patient has no known allergies or adverse reactions. Medications This patient has no known medications. Results Test Description Test Time Test Comments Text Results Atomic Results Result Comments TISSUE EXAM 2018-02-07 11:21:00 Surgical Pathology Report Case: [id number] Authorizing Provider: Warner Downs MD Collected: 02/05/2018 1835 Ordering Location: [facility] Received: 02/06/2018 0807 SERVICES Pathologist: Miriam Bradley Specimen: Ileostomy Ileostomy: - Ileostomy site with reactive changes Signing Pathologist Direct Phone Line: [phone] signed by Miriam Bradley on 02/07/2018 at 11:21 AMDiverticulitis of large intestine without perforation or abscess without bleeding Ileostomy The specimen is received in a formalin-filled container labeled with the patient's information and labeled "ileostomy" and consists of a bifurcated small bowel measuring 12.5 cm in length x 3.5 cm in circumference with a cooney-pink skin component measuring 4.5 x 3 x 0.3 cm. No perforations or suspicious areas are seen. Landfill Gas Collection Operator sections are submitted as follows: A1, stapled resection margin en face; A2, A3, student services representative of small bowel and skin component. CG/ew Sections from ileostomy shows denuded areas of small intestinal mucosa with vascular congestion, hemorrhage, mild increased chronic and focal acute information with reactive changes. Sections also include portions of skin with mild reactive changes. No malignancy is seen. POCT-GLUCOSE METER 2018-02-07 08:16:00 Test Item Value Reference Range Comments POC-GLUCOSE METER (BEAKER) (test 124 mg/dL 70-110 TESTED AT [facility] [address] [facility] [address] [id number]) [place] [address] [id number] 04:34:00 Test Item Value Reference Range Comments PHOSPHORUS (BEAKER) (test iiwm=388) 2.8 mg/dL 2.3-4.7 [id number] 04:34:00 Test Item Value Reference Range Comments MAGNESIUM (BEAKER) (test aika=369) 2.1 mg/dL 1.6-2.6 BASIC METABOLIC [id number] 04:34:00 Test Item Value Reference Range Comments SODIUM (BEAKER) (test 140 meq/L 136-145 bgre=322) POTASSIUM (BEAKER) (test 4.0 meq/L 3.5-5.1 jmzy=357) CHLORIDE (BEAKER) (test 109 meq/L 98-107 cicm=039) CO2 (BEAKER) (test 23 meq/L 22-29 tzta=885) BLOOD UREA NITROGEN 16 mg/dL 7-21 (BEAKER) (test atdt=667) CREATININE (BEAKER) (test 0.70 mg/dL 0.57-1.25 soeq=102) GLUCOSE RANDOM (BEAKER) 137 mg/dL 70-105 (test eyvg=823) CALCIUM (BEAKER) (test 9.0 mg/dL 8.4-10.2 zqzc=150) EGFR (BEAKER) (test 85 mL/min/1.73 sq m ESTIMATED GFR IS NOT fetc=5823) ACCURATE CREATININE CLEARANCE IN PREDICTING GLOMERULAR FILTRATION RATE. ESTIMATED GFR IS NOT APPLICABLE FOR DIALYSIS PATIENTS. CBC (HEMOGRAM ONLY)2018-02-07 04:13:00 Test Item Value Reference Range Comments WHITE BLOOD CELL COUNT (BEAKER) (test jztl=605) 10.2 K/ L 3.5-10.5 RED BLOOD CELL COUNT (BEAKER) (test ujnh=557) 4.22 M/ L 3.93-5.22 HEMOGLOBIN (BEAKER) (test seyk=768) 11.8 GM/DL 11.2-15.7 HEMATOCRIT (BEAKER) (test hfcn=200) 37.6 % 34.1-44.9 MEAN CORPUSCULAR VOLUME (BEAKER) (test getm=339) 89.1 fL 79.4-94.8 MEAN CORPUSCULAR HEMOGLOBIN (BEAKER) (test 28.0 pg 25.6-32.2 tvgj=304) MEAN CORPUSCULAR HEMOGLOBIN CONC (BEAKER) (test 31.4 GM/DL 32.2-35.5 bpwc=430) RED CELL DISTRIBUTION WIDTH (BEAKER) (test 15.2 % 11.7-14.4 pgyk=085) PLATELET COUNT (BEAKER) (test ujur=841) 178 K/CU MM 150-450 MEAN PLATELET VOLUME (BEAKER) (test yrlt=467) 9.7 fL 9.4-12.3 NUCLEATED RED BLOOD CELLS (BEAKER) (test 0 /100 WBC 0-0 rugi=366) POCT-GLUCOSE [id number] 22:14:00 Test Item Value Reference Range Comments POC-GLUCOSE METER (BEAKER) 175 mg/dL 70-110 TESTED AT [address] (test pntp=5158) [place] [id number] POCT-GLUCOSE [id number] 17:05:00 Test Item Value Reference Range Comments POC-GLUCOSE METER (BEAKER) 177 mg/dL 70-110 TESTED AT [address] (test eilr=1894) [place] [id number] POCT-GLUCOSE [id number] 16:33:00 Test Item Value Reference Range Comments POC-GLUCOSE METER (BEAKER) 158 mg/dL 70-110 TESTED AT [address] (test tebj=8564) [place] [id number] POCT-GLUCOSE [id number] 09:04:00 Test Item Value Reference Range Comments POC-GLUCOSE METER (BEAKER) 94 mg/dL 70-110 TESTED AT [address] (test wyha=1418) [facility] [address] HEMOGLOBIN [id number] 08:48:00 Test Item Value Reference Range Comments HEMOGLOBIN A1C (BEAKER) (test eals=835) 5.6 % 4.3-6.1 [id number] 04:04:00 Test Item Value Reference Range Comments PHOSPHORUS (BEAKER) (test doqz=067) 4.6 mg/dL 2.3-4.7 [id number] 04:04:00 Test Item Value Reference Range Comments MAGNESIUM (BEAKER) (test sypo=210) 1.9 mg/dL 1.6-2.6 COMPREHENSIVE METABOLIC [id number] 04:04:00 Test Item Value Reference Range Comments TOTAL PROTEIN (BEAKER) 6.7 gm/dL 6.0-8.3 (test aafe=646) ALBUMIN (BEAKER) (test 4.0 g/dL 3.5-5.0 daeb=4768) ALKALINE PHOSPHATASE 91 U/L 40-150 (BEAKER) (test dldo=810) BILIRUBIN TOTAL (BEAKER) 0.5 mg/dL 0.2-1.2 (test iqtz=666) SODIUM (BEAKER) (test 136 meq/L 136-145 saqg=094) POTASSIUM (BEAKER) (test 4.4 meq/L 3.5-5.1 xyzy=804) CHLORIDE (BEAKER) (test 106 meq/L 98-107 lkmv=655) CO2 (BEAKER) (test 19 meq/L 22-29 hkqn=687) BLOOD UREA NITROGEN 18 mg/dL 7-21 (BEAKER) (test znqw=294) CREATININE (BEAKER) (test 0.71 mg/dL 0.57-1.25 jqry=895) GLUCOSE RANDOM (BEAKER) 142 mg/dL 70-105 (test bklc=954) CALCIUM (BEAKER) (test 9.0 mg/dL 8.4-10.2 merd=922) AST (SGOT) (BEAKER) (test 18 U/L 5-34 exmk=747) ALT (SGPT) (BEAKER) (test 23 U/L 6-55 raxd=560) EGFR (BEAKER) (test 84 mL/min/1.73 sq m ESTIMATED GFR IS NOT jjhh=2689) ACCURATE CREATININE CLEARANCE IN PREDICTING GLOMERULAR FILTRATION RATE. ESTIMATED GFR IS NOT APPLICABLE FOR DIALYSIS PATIENTS. CBC W/PLT COUNT & AUTO [id number] 03:57:00 Test Item Value Reference Range Comments WHITE BLOOD CELL COUNT (BEAKER) (test txvq=045) 13.7 K/ L 3.5-10.5 RED BLOOD CELL COUNT (BEAKER) (test snui=417) 4.35 M/ L 3.93-5.22 HEMOGLOBIN (BEAKER) (test zhhw=757) 12.4 GM/DL 11.2-15.7 HEMATOCRIT (BEAKER) (test lryo=626) 39.0 % 34.1-44.9 MEAN CORPUSCULAR VOLUME (BEAKER) (test thdp=884) 89.7 fL 79.4-94.8 MEAN CORPUSCULAR HEMOGLOBIN (BEAKER) (test 28.5 pg 25.6-32.2 ztmf=884) MEAN CORPUSCULAR HEMOGLOBIN CONC (BEAKER) (test 31.8 GM/DL 32.2-35.5 peoj=295) RED CELL DISTRIBUTION WIDTH (BEAKER) (test 14.3 % 11.7-14.4 qaco=857) PLATELET COUNT (BEAKER) (test mgma=144) 177 K/CU MM 150-450 MEAN PLATELET VOLUME (BEAKER) (test ppna=030) 9.9 fL 9.4-12.3 NUCLEATED RED BLOOD CELLS (BEAKER) (test 0 /100 WBC 0-0 qriy=283) NEUTROPHILS RELATIVE PERCENT (BEAKER) (test 92 % ullg=985) LYMPHOCYTES RELATIVE PERCENT (BEAKER) (test 5 % xzqk=340) MONOCYTES RELATIVE PERCENT (BEAKER) (test 2 % lkgk=528) EOSINOPHILS RELATIVE PERCENT (BEAKER) (test 0 % xffe=669) BASOPHILS RELATIVE PERCENT (BEAKER) (test 0 % acvr=673) NEUTROPHILS ABSOLUTE COUNT (BEAKER) (test 12.58 K/ L 1.56-6.13 ytuh=004) LYMPHOCYTES ABSOLUTE COUNT (BEAKER) (test 0.72 K/ L 1.18-3.74 lsgi=860) MONOCYTES ABSOLUTE COUNT (BEAKER) (test 0.32 K/ L 0.24-0.36 cnby=920) EOSINOPHILS ABSOLUTE COUNT (BEAKER) (test 0.00 K/ L 0.04-0.36 doff=842) BASOPHILS ABSOLUTE COUNT (BEAKER) (test 0.02 K/ L 0.01-0.08 tuvs=915) IMMATURE GRANULOCYTES-RELATIVE PERCENT (BEAKER) 1 % 0-1 (test gdrz=6042) POCT-GLUCOSE [id number] 22:29:00 Test Item Value Reference Range Comments POC-GLUCOSE METER (BEAKER) 142 mg/dL 70-110 TESTED AT [place] [address] [address] (test wrlu=7019) [facility] [address] POCT-GLUCOSE [id number] 19:54:00 Test Item Value Reference Range Comments POC-GLUCOSE METER (BEAKER) 161 mg/dL 70-110 TESTED AT [place] [address] [facility] (test oaay=4216) [facility] [address] POCT-GLUCOSE [id number] 13:11:00 Test Item Value Reference Range Comments POC-GLUCOSE METER (BEAKER) 107 mg/dL 70-110 TESTED AT [facility] [address] [facility] (test jzek=3110) [facility] [address] BASIC METABOLIC [id number] 13:08:00 Test Item Value Reference Range Comments SODIUM (BEAKER) (test 138 meq/L 136-145 qpxs=147) POTASSIUM (BEAKER) (test 4.7 meq/L 3.5-5.1 oyld=857) CHLORIDE (BEAKER) (test 104 meq/L 98-107 mppd=753) CO2 (BEAKER) (test 25 meq/L 22-29 gbxb=998) BLOOD UREA NITROGEN 17 mg/dL 7-21 (BEAKER) (test shqj=676) CREATININE (BEAKER) (test 0.73 mg/dL 0.57-1.25 meih=815) GLUCOSE RANDOM (BEAKER) 99 mg/dL 70-105 (test ylzr=549) CALCIUM (BEAKER) (test 10.3 mg/dL 8.4-10.2 mylk=393) EGFR (BEAKER) (test 81 mL/min/1.73 sq m ESTIMATED GFR IS NOT dohc=1475) ACCURATE CREATININE CLEARANCE IN PREDICTING GLOMERULAR FILTRATION RATE. ESTIMATED GFR IS NOT APPLICABLE FOR DIALYSIS PATIENTS. [id number] 12:48:00 Test Item Value Reference Range Comments HEMOGLOBIN (BEAKER) (test tqzr=346) 14.0 GM/DL 11.2-15.7
[2018-07-03] MEDS ORDERED: SCOPOLAMINE HYDROBROMIDE PATCH TD ONE (06:59)
[2018-07-03] MEDS ORDERED: NA CHLORIDE 0.9% 1,000 ML ONE (06:59)
[2018-07-03] MEDS ORDERED: LIDOCAINE 1% W/EPI 1:100,000 MDV 50 ML VIAL ONE (07:24)
[2018-07-03] MEDS ORDERED: PROPOFOL 200 MG/20 ML VIAL IV ONE (07:24)
[2018-07-03] MEDS ORDERED: FENTANYL CITR 100 MCG/2 ML ONE (07:25)
[2018-07-03] MEDS ORDERED: LIDOCAINE 2% MPF 5 ML VIAL ONE (07:25)
[2018-07-03] MEDS ORDERED: ONDANSETRON HCL 40 MG/20 ML VIAL ONE (07:27)
[2018-07-03] MEDS ORDERED: MIDAZOLAM HCL 2 MG/2 ML INJ ONE (07:29)
[2018-07-03] MEDS: CEFAZOLIN/SWI 1gm 1 GM/10 ML SYR ONE ×2 (07:39→07:49)
[2018-07-03] MEDS ORDERED: NS 0.9% VIAL 0 ML ONE (07:40)
[2018-07-03] MEDS ORDERED: VASOPRESSIN 20 UNIT/ML VIAL ONE (07:40)
[2018-07-03 09:54] VITALS: BP 126/65; TEMP 97.4; O2SAT 93
[2018-07-03] MEDS ORDERED: ONDANSETRON 4 MG/2 ML VIAL ONE (10:13)
--- NOTE | 2018-07-03 14:09 | OP ---
Date of Procedure: 07/03/2018 Surgeon: Alicia Price MD Vocational Placement Specialist: None. 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 Procedures Performed: Vulvar colposcopy, wide local excision of the left vulvar (labia majora and la jennifer minora), and perineal wide local excision. Anesthesia: General with LMA. Specimens: Labial and perineal lesions marked with a long stitch at the left apex and short stitch a t the outer margin. Estimated Blood Loss: Minimal. Condition: The patient is stable. Description Of Procedure: After informed consent was verified, the patient was taken back to the OR, placed in a supine fashion on the operating table. After general anesthesia was given. She was sailaja mary in dorsal lithotomy position. Vulvar colposcopy was performed, plain without acetic acid first. No obvious dysplasia was seen. Site of the vulvar biopsy was noted. Then, acetic acid was applied. I could see mild aceto-white epithelium and irregular thickened epithelium as well within an area t hat encompassed the left inferior labia majora and labia minora outer aspect and then the perineum, s o this area was then marked out with a marking pen in an elliptical fashion. Then, the prep was done with Betadine, and the vulva, vagina, and perineum draped in the usual fashion. One gram of Ancef w as given. Local injection of 1% lidocaine with 1:100,000 epinephrine was used to inject in a circumf erential fashion as well as in the midline. A 15-blade was used to make an incision all around on th e elliptical area drawn. Then, the skin was excised all the way down in its complete thickness and e xcised the entire lesion in 1 piece. This was marked as dictated above with the long stitch at the a pex, short stitch on the outer margin. Then, hemostasis was secured with a cautery at the base at th e outer aspect of the inner margin. The 3-0 Vicryl stitch had to be placed for hemostasis. Then res t of the area on the lesion was first mobilized on the outer aspect to create an advancement flap. T he inner margins were also mobilized for bringing it together. Then 3-0 Vicryl sutures were placed i n interrupted fashion all along and once the tension was taken off the skin and the subcutaneous tiss ues were brought together, then the skin was closed with the help of a continuous 3-0 Vicryl running subcuticular suture. There were 2 areas that were slightly uneven in coming together and these were sutured with the help of interrupted 3-0 Vicryl. The patient was cleaned up. A gauze was placed on top, and she was recovered from general anesthesia. Instrument, needle, and sponge counts x3 were co rrect at the end of the case. She was taken to the PACU in stable condition. She will be discharged home with jeane-care instructions. She has a followup appointment in a week and Keflex 500 q.i.d. fo r 7 days will be sent. She has a narcotic prescription as well for pain control, and there was more local that was injected over the 20 cc that was initially injected for local pain control. The patie nt had urinated right before the procedures, so there was no need to catheterize her. ZEFERINO/NARENDRA Voice ID: [id number] Report ID: [id number]
== END 2018-07-03 10:35 | disposition home or self-care (01) ==
LOC: OR 06:31
PROVIDERS: ATTEND Obstetrics & Gynecology
PROC: 0UBM0ZZ Excision of Vulva, Open Approach (ICD-10-PCS; 2018-07-03)
PROC: 0UJH8ZZ Inspection of Vagina and Cul-de-sac, Via Natural or Artificial Opening Endoscopic (ICD-10-PCS; principal; 2018-07-03 07:30)
DX: D07.1 Carcinoma in situ of vulva (principal); E11.9 Type 2 diabetes mellitus without complications; I10 Essential (primary) hypertension; E78.5 Hyperlipidemia, unspecified; Z79.82 Long term (current) use of aspirin; Z90.49 Acquired absence of other specified parts of digestive tract; Z82.49 Family history of ischemic heart disease and other diseases of the circulatory system; Z82.3 Family history of stroke
CPT/HCPCS: 82962; 88305; J0690; J2250; J2405; J2704; J3010; J7030